=== PATIENT | male | born 1965 | race African-American/Black ===

== ENCOUNTER → 2017-01-10 | Outpatient (CLI) | payer OTHER ==
[~2017-01-10] MED LIST: CYCL1TAB29 PO; GLIP5TAB8 PO; HYDR-3533 PO; LEVEMIR SQ; MEDR4PAK PO; METF1000 PO; MOBI15TA PO; NOVOLOGP2 SQ; NYSTCRE29 TOPICAL; PRAV80TA2 PO; needles SQ; test strips TD
[2017-01-10 08:32] LABS: AUTOMATED NEUTROPHIL # 2.4 TH/MM3 (1.8-7.7); BASOPHIL # 0.1 TH/MM3 (0-0.2); BASOPHIL % 0.9 % (0.0-2.0); EOSINOPHIL # 0.3 TH/MM3 (0-0.4); EOSINOPHIL % 4.5 % (0.0-4.0); HEMATOCRIT 40.8 % (39.0-51.0); HEMO FLAGS DIFF FINAL; LYMPH % 47.9 % (9.0-44.0); LYMPHOCYTE # 2.9 TH/MM3 (1.0-4.8); MEAN CELL VOLUME 91.6 FL (80.0-100.0); MEAN CORPUSCULAR HEMOGLOBIN 31.9 PG (27.0-34.0); MEAN CORPUSCULAR HGB CONC 34.8 % (32.0-36.0); MONO % 5.8 % (0.0-8.0); NEUT % 40.9 % (16.0-70.0); PLATELET COUNT 254 TH/MM3 (150-450); RED BLOOD COUNT 4.46 MIL/MM3 (4.50-5.90); RED CELL DISTRIBUTION WIDTH 12.2 % (11.6-17.2)
[2017-01-10 09:01] LABS: ANION GAP 9 MEQ/L (5-15); BICARBONATE 24.7 MEQ/L (21.0-32.0); BLOOD UREA NITROGEN 13 MG/DL (7-18); CHLORIDE 103 MEQ/L (98-107); GLOMERULAR FILTRATION RATE 68 ML/MIN (>89); GLUCOSE,FASTING 279 MG/DL (74-99); POTASSIUM 3.9 MEQ/L (3.5-5.1); SODIUM (NA) 137 MEQ/L (136-145)
[2017-01-10 10:41] LABS: HEMOGLOBIN A1a 0.8 %; HEMOGLOBIN A1b 2.1 %; HEMOGLOBIN Ao 81.1 %; HEMOGLOBIN LA1C 3.1 %; HEMOGLOBIN P3 4.5 %
== END ==
LOC: CLAB 08:13
PROVIDERS: ATTEND Family Medicine Sports Medicine
DX: E78.5 Hyperlipidemia, unspecified (principal); E11.9 Type 2 diabetes mellitus without complications
CPT/HCPCS: 36415; 80048; 83036; 85025

== ENCOUNTER → 2017-08-23 | Outpatient (CLI) | payer OTHER ==
[~2017-08-23] MED LIST changes: -MEDR4PAK PO; -MOBI15TA PO
[2017-08-23 09:56] LABS: HEMATOCRIT 41.8 % (39.0-51.0); MEAN CELL VOLUME 92.5 FL (80.0-100.0); MEAN CORPUSCULAR HEMOGLOBIN 31.5 PG (27.0-34.0); PLATELET COUNT 258 TH/MM3 (150-450); RED BLOOD COUNT 4.52 MIL/MM3 (4.50-5.90); RED CELL DISTRIBUTION WIDTH 11.8 % (11.6-17.2); REVIEW FLAG FINAL; WHITE BLOOD COUNT 5.1 TH/MM3 (4.0-11.0)
[2017-08-23 10:33] LABS: ANION GAP 8 MEQ/L (5-15); BICARBONATE 22.4 MEQ/L (21.0-32.0); BLOOD UREA NITROGEN 12 MG/DL (7-18); CHLORIDE 104 MEQ/L (98-107); GLOMERULAR FILTRATION RATE 83 ML/MIN (>89); GLUCOSE,FASTING 258 MG/DL (74-99); POTASSIUM 3.9 MEQ/L (3.5-5.1); SODIUM (NA) 134 MEQ/L (136-145)
[2017-08-23 10:37] LABS: HDL CHOLESTEROL 46.8 MG/DL (40.0-60.0); LDL CHOLESTEROL 129 MG/DL (0-99)
[2017-08-23 10:41] LABS: MICRO ALBUMIN RANDOM URINE RAW 24.7 MG/L (0.0-30.0)
[2017-08-23 15:36] LABS: HEMOGLOBIN A1b 2.1 %; HEMOGLOBIN Ao 81.1 %; HEMOGLOBIN LA1C 3.1 %; HEMOGLOBIN P3 4.6 %
== END ==
LOC: CLAB 09:16
PROVIDERS: ATTEND Family Medicine
DX: E11.42 Type 2 diabetes mellitus with diabetic polyneuropathy (principal); Z68.30 Body mass index [BMI] 30.0-30.9, adult
CPT/HCPCS: 36415; 80048; 80061; 82043; 83036; 85027

== ENCOUNTER 2017-10-21 12:29 | Emergency (ER) | payer OTHER ==
[~2017-10-21 12:29] MED LIST changes: +CYCL10TA PO; -CYCL1TAB29 PO
[2017-10-21 12:30] VITALS: BP 185/100; PULSE 98; RESP 16; TEMP 98.9; O2SAT 96
[2017-10-21] MEDS ORDERED: LIDOCAINE HCL 1% 50 ML VIAL INFIL ONE (14:00)
[2017-10-21] MEDS ORDERED: ACETAMINOPHEN/HYDROcodone 325 MG/5 MG TAB PO ONE (14:00)
--- NOTE | 2017-10-21 14:05 | PD ---
HPI Chief Complaint: Skin Problem Time Seen by Provider: 13:45 Travel History International Travel<30 days: No Contact w/Intl Traveler<30days: No Traveled to known affect area: No History of Present Illness HPI 51-year-old male presents to emergency department complaining of an abscess to the lower abdominal/suprapubic region. States this started last Saturday and was extremely painful. Denies radiation of pain. He is taken multiple over-the- counter medications for pain and hip has only worsened. Patient has tried to open and press on the wound however he was unsuccessful. He has been using warm and cool compresses with some expression of fluid. Patient states he did have fever yesterday of 101 that was decreased with Motrin and Tylenol. Patient has diabetes. He denies a history of abscesses. PFSH Past Medical History Asthma: No Blood Disorders: No Anxiety: Yes Depression: Yes Cancer: No Cardiovascular Problems: Yes High Cholesterol: Yes Chest Pain: Yes COPD: No Diabetes: Yes Diminished Hearing: No Endocrine: Yes Glaucoma: No Genitourinary: No Hepatitis: No Hiatal Hernia: No Hypertension: Yes Immune Disorder: No Kidney Stones: Yes Musculoskeletal: Yes Neurologic: No Psychiatric: No Reproductive: No Respiratory: No Myocardial Infarction: Yes Seizures: Yes Thyroid Disease: No PNEUMOCCOCAL Vaccine (Year): 3 : 4 Para: 3 Miscarriage: 1 Past Surgical History Hysterectomy: Yes (1983) Pacemaker: No Tonsillectomy: Yes Other Surgery: Yes Social History Alcohol Use: Yes Tobacco Use: No Substance Use: No Allergies-Medications (Allergen,Severity, Reaction): Coded Allergies: morphine (Unverified Allergy, Severe, CHEST PAIN, 08/22/17) Reported Meds & Prescriptions Reported Meds & Active Scripts Active Bactrim DS (Sulfamethoxazole-Trimethoprim) 800-160 Mg Tab 1 Tab PO BID Novolog Inj (Insulin Aspart) 1,000 Unit/10 Ml Vial 15 Units SQ TIDAC Levemir Inj (Insulin Detemir) 1,000 unit/ 10 ML Vial 25 Units SQ HS Do not mix with any other Insulin. [needles] 1 SQ ACHS AND 3AM needles, syringes, lancets for twice daily lantus administration. Dispense 30 days supply. [test strips] 2 U TD BID [employer] Thing[employer] Contour Test Strips Metformin (Metformin HCl) 1,000 Mg Tab 1,000 Mg PO BIDPC With meals Lortab (Hydrocodone-Acetaminophen) 5-325 Mg Tab 1 Tab PO Q6H PRN Glipizide 5 Mg Tab 5 Mg PO BIDAC Take 30 minutes before a meal Nystatin-Triamcinolone 100,000-0.1 Unit/Gm Cream 1 Applic TOPICAL BID Pravastatin 80 Mg Tab 80 Mg PO DAILY Reported Flexeril (Cyclobenzaprine HCl) 10 Mg Tab 10 Mg PO TID Review of Systems Except as stated in HPI: all other systems reviewed are Neg Physical Exam Narrative GENERAL: Well-developed well-nourished in mild distress SKIN: Focused skin assessment warm/dry. HEAD: Atraumatic. Normocephalic. NECK: Trachea midline. No JVD. No lymphadenopathy CARDIOVASCULAR: Regular rate and rhythm. No murmur appreciated. RESPIRATORY: No accessory muscle use. Clear to auscultation. Breath sounds equal bilaterally. GASTROINTESTINAL: Abdomen soft, non-tender, nondistended. Hepatic and splenic margins not palpable. Lower abdominal/suprapubic region- 1-1/2 cm round lesion with exudate, surrounding area of induration for several years by 3 cm without obvious lymphangitic Spread or erythema. MUSCULOSKELETAL: No obvious deformities. No clubbing. No cyanosis. No edema. NEUROLOGICAL: Awake and alert. No obvious cranial nerve deficits. Motor grossly within normal limits. Normal speech. PSYCHIATRIC: Appropriate mood and affect; insight and judgment normal. Data Data Last Documented VS Vital Signs Date Time Temp Pulse Resp B/P (MAP) Pulse Ox O2 Delivery O2 Flow Rate FiO2 10/21/17 12:30 98.9 98 16 185/100 (128) 96 Orders Orders Acetamin-Hydrocod 325-5 Mg (Tyler 5-325 (10/21/17 14:00) Lidocaine 1% Inj (50 Ml) (Xylocaine 1% I (10/21/17 14:00) Ed Discharge Order (10/21/17 14:32) MDM Medical Decision Making Medical Screen Exam Complete: Yes Emergency Medical Condition: Yes Differential Diagnosis Abscess, cellulitis, erysipelas Narrative Course 51-year-old male presents to emergency department complaining of an abscess to the lower abdominal/suprapubic region. States this started last Saturday and was extremely painful. Denies radiation of pain. He is taken multiple over-the- counter medications for pain and hip has only worsened. Patient has tried to open and press on the wound however he was unsuccessful. He has been using warm and cool compresses with some expression of fluid. Patient states he did have fever yesterday of 101 that was decreased with Motrin and Tylenol. Patient has diabetes. He denies a history of abscesses. Vital signs stable Physical exam consistent with abscess. Incision and drainage performed today. Advised on wound care. Advised patient follow-up with primary care within 2 days or return to the emergency department for wound check. Bactrim DS antibiotic for abscess. Procedures Procedure Narrative INCISION AND DRAINAGE OF ABSCESS: The area was prepped and was sterilely draped. A subcutaneous wheal of 1% Xylocaine without epi with a total number 2 mL was used to anesthetize the area properly. A number 11 scalpel was used to make a 5 mm incision across the area of the abscess. The abscess was drained, complex loculations were broken down, and irrigated with normal saline. Quarter inch iodoform packing was placed in the wound. Sterile dressing applied. Patient advised to have packing removed in two days. Diagnosis Primary Impression: Abscess Referrals: Primary Care Physician Additional Instructions: Follow-up with primary care physician within 2 days for wound check. If you cannot follow-up with primary care return to the emergency department. Keep wound clean and dry for at least 24 hours then you may replace the dressing with dry clean dressing. If the gauze comes out of the wound just cover the wound with clean dressing and follow up as described. Take all medications as prescribed. After 24-48hours, you may continue to use warm compresses on the wound. Scripts Sulfamethoxazole-Trimethoprim (Bactrim DS) 800-160 Mg Tab 1 TAB PO BID for Infection, #20 TAB 0 Refills Prov: Latonia Naqvi 10/21/17 Disposition: 01 DISCHARGE HOME Condition: Stable Ninfa Beyer Oct 21, 2017 14:05
[2017-10-21] MEDS ORDERED: BACT800T5 PO (14:30)
[2017-11-01] MEDS ORDERED: NOVOLOGP2 SQ (15:16)
[2017-11-01] MEDS ORDERED: needles SQ (15:16)
[2017-11-01] MEDS ORDERED: GABA300C5 PO (15:21)
== END 2017-10-21 14:51 | disposition home or self-care (01) ==
LOC: NEPD 12:29
DX: L02.211 Cutaneous abscess of abdominal wall (principal); E11.9 Type 2 diabetes mellitus without complications; E78.00 Pure hypercholesterolemia, unspecified; Z79.4 Long term (current) use of insulin
CPT/HCPCS: 10060; 10061

== ENCOUNTER → 2017-11-07 | Outpatient (CLI) | payer OTHER ==
[~2017-11-07] MED LIST changes: -CYCL10TA PO; +GABA300C5 PO
[2017-11-07 09:11] LABS: HEMATOCRIT 39.3 % (39.0-51.0); HEMOGLOBIN 13.3 GM/DL (13.0-17.0); MEAN CELL VOLUME 93.5 FL (80.0-100.0); MEAN CORPUSCULAR HEMOGLOBIN 31.8 PG (27.0-34.0); MEAN PLATELET VOLUME 6.6 FL (7.0-11.0); PLATELET COUNT 313 TH/MM3 (150-450); RED CELL DISTRIBUTION WIDTH 12.3 % (11.6-17.2); WHITE BLOOD COUNT 7.1 TH/MM3 (4.0-11.0)
[2017-11-07 09:37] LABS: BICARBONATE 22.8 MEQ/L (21.0-32.0); BLOOD UREA NITROGEN 14 MG/DL (7-18); CALCIUM 9.4 MG/DL (8.5-10.1); CHLORIDE 105 MEQ/L (98-107); CREATININE 1.23 MG/DL (0.60-1.30); GLOMERULAR FILTRATION RATE 75 ML/MIN (>89); GLUCOSE,FASTING 209 MG/DL (74-99); SODIUM (NA) 136 MEQ/L (136-145)
[2017-11-07 16:20] LABS: HEMOGLOBIN A1C 7.2 % (4.3-6.0)
== END ==
LOC: CLAB 08:44
PROVIDERS: ATTEND Family Medicine
DX: E11.9 Type 2 diabetes mellitus without complications (principal); N28.9 Disorder of kidney and ureter, unspecified; E78.5 Hyperlipidemia, unspecified
CPT/HCPCS: 36415; 80048; 83036; 85027

== ENCOUNTER → 2018-03-04 | Outpatient (CLI) | payer OTHER ==
[~2018-03-04] MED LIST changes: +LEVA500T33 PO; +PERC5TAB12 PO
[2018-03-04 14:32] LABS: BILIRUBIN, URINE NEG (NEG); BLOOD, URINE NEG (NEG); GLUCOSE,URINE 300 mg/dL (NEG); HYALINE CAST, URINE 8 /lpf (RARE); KETONE, URINE NEG (NEG); MUCUS URINE FEW /lpf (OCC); NITRITE,URINE NEG (NEG); PH, URINE 5.5 (5.0-8.5); SQUAMOUS EPITHELIAL CELL URINE 1 /hpf (0-5); URINE COLOR YELLOW (YELLW/STRAW); URINE LEUKOCYTE ESTERASE TRACE (NEG)
== END ==
LOC: CLAB 13:27
PROVIDERS: ATTEND Hospitalist
DX: N40.1 Benign prostatic hyperplasia with lower urinary tract symptoms (principal)
CPT/HCPCS: 36415; 81001; 84153

== ENCOUNTER → 2018-03-12 | Outpatient (CLI) | payer OTHER | LOC: CLAB 08:39 | PROVIDERS: ATTEND Family Medicine | DX: N45.1 Epididymitis (principal) | CPT/HCPCS: 36415; 86592; 86703; 87086; 87491; 87591 ==

== ENCOUNTER 2018-03-13 14:44 | Inpatient (IN) | payer OTHER ==
[~2018-03-13] VITALS: Ht 188 cm; Wt 112.2 kg
[~2018-03-13 14:44] MED LIST changes: -LEVA500T33 PO; -PERC5TAB12 PO
[2018-03-13 14:50] VITALS: BP 158/91; PULSE 91; RESP 16; TEMP 98.3; O2SAT 97
--- NOTE | 2018-03-13 15:12 | PD ---
HPI Chief Complaint: Flank/Kidney Pain Time Seen by Provider: 15:12 Travel History International Travel<30 days: No Contact w/Intl Traveler<30days: No Traveled to known affect area: No History of Present Illness HPI 52-year-old -[place] male presents emergency department with worsening right flank pain. He has nausea but no vomiting. He states he was seen at [place] 2 days ago and had a CT scan showing 1 mm stone in the right ureter with possible obstruction. Patient states his symptoms have worsened with increasing pain, nausea, and he called his doctor who recommended he be seen here for evaluation. Patient states flank pain is currently 8 out of 10. He has no fever, chills, or dysuria. He denies hematuria he states he is allergic to morphine PFS Past Medical History Asthma: No Blood Disorders: No Anxiety: Yes Depression: Yes Cancer: No Cardiovascular Problems: Yes High Cholesterol: Yes Chest Pain: Yes COPD: No Diabetes: Yes Diminished Hearing: No Endocrine: Yes Glaucoma: No Genitourinary: No Hepatitis: No Hiatal Hernia: No Hypertension: Yes Immune Disorder: No Kidney Stones: Yes Musculoskeletal: Yes (CHRONIC LOW BACK PAIN , TORN ACL ) Neurologic: No Psychiatric: No Reproductive: No Respiratory: No Myocardial Infarction: Yes Seizures: Yes Thyroid Disease: No PNEUMOCCOCAL Vaccine (Year): 3 : 4 Para: 3 Miscarriage: 1 Past Surgical History Hysterectomy: Yes (1983) Pacemaker: No Tonsillectomy: Yes Other Surgery: Yes Social History Alcohol Use: Yes Tobacco Use: No Substance Use: Yes (marijuana ) Allergies-Medications (Allergen,Severity, Reaction): Coded Allergies: morphine (Unverified Allergy, Severe, CHEST PAIN, 11/01/17) Reported Meds & Prescriptions Reported Meds & Active Scripts Active Gabapentin 300 Mg Cap 300 Mg PO TID Novolog Inj (Insulin Aspart) 1,000 Unit/10 Ml Vial 15 Units SQ TIDAC [needles] 1 SQ ACHS AND 3AM needles, syringes, lancets for twice daily lantus administration. Dispense 30 days supply. Levemir Inj (Insulin Detemir) 1,000 unit/ 10 ML Vial 25 Units SQ HS Do not mix with any other Insulin. [test strips] 2 U TD BID [employer] Contour Test Strips Metformin (Metformin HCl) 1,000 Mg Tab 1,000 Mg PO BIDPC With meals Lortab (Hydrocodone-Acetaminophen) 5-325 Mg Tab 1 Tab PO Q6H PRN Glipizide 5 Mg Tab 5 Mg PO BIDAC Take 30 minutes before a meal Nystatin-Triamcinolone 100,000-0.1 Unit/Gm Cream 1 Applic TOPICAL BID Pravastatin 80 Mg Tab 80 Mg PO DAILY Review of Systems Except as stated in HPI: all other systems reviewed are Neg General / Constitutional: No: Fever Eyes: No: Visual changes HENT: No: Headaches Cardiovascular: No: Chest Pain or Discomfort Respiratory: No: Shortness of Breath Gastrointestinal: No: Abdominal Pain Genitourinary: Positive: Flank Pain, No: Dysuria Musculoskeletal: No: Pain Skin: No Rash Neurologic: No: Weakness Psychiatric: No: Depression Endocrine: No: Polydipsia Hematologic/Lymphatic: No: Easy Bruising Physical Exam Narrative GENERAL: Patient appears in mild to moderate distress per SKIN: Warm and dry. Normal color. Normal turgor. No diaphoresis per HEAD: Atraumatic. Normocephalic. EYES: Pupils equal and round. No scleral icterus. No injection or drainage. ENT: No nasal bleeding or discharge. Mucous membranes pink and moist. Pharynx is clear. Airways patent NECK: Trachea midline. Supple nontender CARDIOVASCULAR: Regular rate and rhythm. RESPIRATORY: No accessory muscle use. Clear to auscultation. Breath sounds equal bilaterally. GASTROINTESTINAL: Abdomen soft, non-tender, nondistended. Hepatic and splenic margins not palpable. Patient has mild to moderate right sided flank pain with percussion. MUSCULOSKELETAL: Extremities without clubbing, cyanosis, or edema. No obvious deformities. NEUROLOGICAL: Awake and alert. No obvious cranial nerve deficits. Motor grossly within normal limits. Five out of 5 muscle strength in the arms and legs. Normal speech. PSYCHIATRIC: Appropriate mood and affect; insight and judgment normal. Data Data Last Documented VS Vital Signs Date Time Temp Pulse Resp B/P (MAP) Pulse Ox O2 Delivery O2 Flow Rate FiO2 03/13/18 14:50 98.3 91 16 158/91 (113) 97 Orders Orders Complete Blood Count With Diff (03/13/18 15:22) Comprehensive Metabolic Panel (03/13/18 15:22) Urinalysis - C+S If Indicated (03/13/18 15:22) Ct Abd/Pel W/O Iv Contrast (03/13/18 15:22) Iv Access Insert/Monitor (03/13/18 15:22) Ketorolac Inj (Toradol Inj) (03/13/18 15:30) Ondansetron Inj (Zofran Inj) (03/13/18 15:30) Sodium Chloride 0.9% Flush (Ns Flush) (03/13/18 15:30) Sodium Chlor 0.9% 1000 Ml Inj (Ns 1000 M (03/13/18 16:00) Tamsulosin (Flomax) (03/13/18 16:00) Consult Urology (03/13/18 ) Labs Laboratory Tests Test 03/13/18 15:45 White Blood Count 6.6 TH/MM3 Red Blood Count 4.06 MIL/MM3 Hemoglobin 13.0 GM/DL Hematocrit 37.5 % Mean Corpuscular Volume 92.3 FL Mean Corpuscular Hemoglobin 31.9 PG Mean Corpuscular Hemoglobin Concent 34.6 % Red Cell Distribution Width 11.9 % Platelet Count 270 TH/MM3 Mean Platelet Volume 7.2 FL Neutrophils (%) (Auto) 45.2 % Lymphocytes (%) (Auto) 44.9 % Monocytes (%) (Auto) 5.9 % Eosinophils (%) (Auto) 3.6 % Basophils (%) (Auto) 0.4 % Neutrophils # (Auto) 3.0 TH/MM3 Lymphocytes # (Auto) 3.0 TH/MM3 Monocytes # (Auto) 0.4 TH/MM3 Eosinophils # (Auto) 0.2 TH/MM3 Basophils # (Auto) 0.0 TH/MM3 CBC Comment DIFF FINAL Differential Comment Urine Color YELLOW Urine Turbidity CLEAR Urine pH 5.5 Urine Specific [place] 1.023 Urine Protein TRACE mg/dL Urine Glucose (UA) 1000 mg/dL Urine Ketones NEG mg/dL Urine Occult Blood NEG Urine Nitrite NEG Urine Bilirubin NEG Urine Urobilinogen LESS THAN 2.0 MG/DL Urine Leukocyte Esterase TRACE Urine RBC LESS THAN 1 /hpf Urine WBC 3 /hpf Urine Squamous Epithelial Cells <1 /hpf Microscopic Urinalysis Comment CULT NOT INDICATED Blood Urea Nitrogen 13 MG/DL Creatinine 1.58 MG/DL Random Glucose 219 MG/DL Total Protein 7.1 GM/DL Albumin 3.5 GM/DL Calcium Level 8.9 MG/DL Alkaline Phosphatase 83 U/L Aspartate Amino Transf (AST/SGOT) 18 U/L Alanine Aminotransferase (ALT/SGPT) 21 U/L Total Bilirubin 0.6 MG/DL Sodium Level 136 MEQ/L Potassium Level 3.9 MEQ/L Chloride Level 105 MEQ/L Carbon Dioxide Level 22.9 MEQ/L Anion Gap 8 MEQ/L Estimat Glomerular Filtration Rate 56 ML/MIN MDM Medical Decision Making Medical Screen Exam Complete: Yes Emergency Medical Condition: Yes Differential Diagnosis Right flank pain. Renal colic. Kidney stone. Narrative Course Patient appears medically stable at time of exam. CT of the abdomen without contrast is ordered to evaluate renal stone. IV access is obtained the patient is given 30 mg Toradol IV as well as 4 mg Zofran IV. Patient is given 1000 mL's normal saline bolus. Patient is given Flomax 0.4 mg p.o. CBC is unremarkable. Urinalysis is unremarkable except for glucose of 1000 and a trace of leukocyte esterase. No occult blood is noted. Chemistry significant for creatinine 1.58 which is elevated for the patient. GFR 56. Random glucose is elevated as well at 219 CT scan showed: Right side: Severe hydronephrosis and hydroureter caused by multiple calcified stones in the distal one third of the ureter, 3 in number, the largest of which measures 8 mm. Are also dilated 10 mm calcification in the lower pole collecting system which could represent a multiple small stones or a solitary irregular stone. Calls placed to Dr. Luna, the urologist marketing liaison. He recommends the patient be admitted to the hospitalist service with consult to him. He is requesting the patient be n.p.o. after midnight for possible stent placement in the morning. Calls placed to the hospitalist for admission. Diagnosis Primary Impression: Hydronephrosis Qualified Codes: N13.2 - Hydronephrosis with renal and ureteral calculous obstruction Additional Impression: Renal calculus, right Admitting Information Admitting Physician Requests: Admit Condition: Stable Rob Plunkett March 13, 2018 15:12
[2018-03-13] MEDS ORDERED: ONDANSETRON HCL 4 MG/2 ML VIAL IVP ONE (15:30)
[2018-03-13] MEDS ORDERED: SODIUM CHLORIDE 0.9% FLUSH 10 ML FLUSH IVF PRN (15:30)
[2018-03-13] MEDS ORDERED: KETOROLAC TROMETHAMINE 30 MG/ML (IVP) VIAL IVP ONE (15:30)
[2018-03-13 15:58] LABS: BILIRUBIN, URINE NEG (NEG); BLOOD, URINE NEG (NEG); GLUCOSE,URINE 1000 mg/dL (NEG); KETONE, URINE NEG (NEG); NITRITE,URINE NEG (NEG); PH, URINE 5.5 (5.0-8.5); SQUAMOUS EPITHELIAL CELL URINE <1 /hpf (0-5); URINE COLOR YELLOW (YELLW/STRAW); URINE LEUKOCYTE ESTERASE TRACE (NEG)
[2018-03-13] MEDS ORDERED: TAMSULOSIN HCL 0.4 MG CAP PO ONE (16:00)
[2018-03-13] MEDS ORDERED: SODIUM CHLOR 0.9% 1000 ML INJ 1,000 ML IV ONE (16:00)
--- NOTE | 2018-03-13 16:00 | PD ---
Physical Exam Narrative I, Dr. Olivares, have reviewed the advance practice practitioner's documentation and am in agreement, met with the patient face to face, made the diagnosis, and the medical decision making was done by me. *My assessment and Findings: Nephrolithiasis vs. pyelonephritis 52yo M with PMH of nephrolithiasis presents to the ED with intermittent right flank pain radiating to right groin for 2 weeks. Said he saw his primary care physician and was told to come to the Emergency department. Said he had CT 2 days ago that showed kidney stone and obstruction. Pt has CVA tenderness on right. He said he is urinating fine. Will do labs and check UA. Pt given toradol and zofran. Labs reviewed, no leukocytosis. Creatinine mildly elevated at 1.58. UA negative. CT a/p showed obstructive uropathy on right side with severe hydronephrosis and hydroureter cause by 3 distal right ureteral stones. Dr. Pal was called. Pt to be admitted for obstructive uropathy. Data Data Last Documented VS Vital Signs Date Time Temp Pulse Resp B/P (MAP) Pulse Ox O2 Delivery O2 Flow Rate FiO2 03/13/18 14:50 98.3 91 16 158/91 (113) 97 Orders Orders Complete Blood Count With Diff (03/13/18 15:22) Comprehensive Metabolic Panel (03/13/18 15:22) Urinalysis - C+S If Indicated (03/13/18 15:22) Ct Abd/Pel W/O Iv Contrast (03/13/18 15:22) Iv Access Insert/Monitor (03/13/18 15:22) Ketorolac Inj (Toradol Inj) (03/13/18 15:30) Ondansetron Inj (Zofran Inj) (03/13/18 15:30) Sodium Chloride 0.9% Flush (Ns Flush) (03/13/18 15:30) Sodium Chlor 0.9% 1000 Ml Inj (Ns 1000 M (03/13/18 16:00) Tamsulosin (Flomax) (03/13/18 16:00) Labs Laboratory Tests Test 03/13/18 15:45 White Blood Count 6.6 TH/MM3 Red Blood Count 4.06 MIL/MM3 Hemoglobin 13.0 GM/DL Hematocrit 37.5 % Mean Corpuscular Volume 92.3 FL Mean Corpuscular Hemoglobin 31.9 PG Mean Corpuscular Hemoglobin Concent 34.6 % Red Cell Distribution Width 11.9 % Platelet Count 270 TH/MM3 Mean Platelet Volume 7.2 FL Neutrophils (%) (Auto) 45.2 % Lymphocytes (%) (Auto) 44.9 % Monocytes (%) (Auto) 5.9 % Eosinophils (%) (Auto) 3.6 % Basophils (%) (Auto) 0.4 % Neutrophils # (Auto) 3.0 TH/MM3 Lymphocytes # (Auto) 3.0 TH/MM3 Monocytes # (Auto) 0.4 TH/MM3 Eosinophils # (Auto) 0.2 TH/MM3 Basophils # (Auto) 0.0 TH/MM3 CBC Comment DIFF FINAL Differential Comment Urine Color YELLOW Urine Turbidity CLEAR Urine pH 5.5 Urine Specific [place] 1.023 Urine Protein TRACE mg/dL Urine Glucose (UA) 1000 mg/dL Urine Ketones NEG mg/dL Urine Occult Blood NEG Urine Nitrite NEG Urine Bilirubin NEG Urine Urobilinogen LESS THAN 2.0 MG/DL Urine Leukocyte Esterase TRACE Urine RBC LESS THAN 1 /hpf Urine WBC 3 /hpf Urine Squamous Epithelial Cells <1 /hpf Microscopic Urinalysis Comment CULT NOT INDICATED Blood Urea Nitrogen 13 MG/DL Creatinine 1.58 MG/DL Random Glucose 219 MG/DL Total Protein 7.1 GM/DL Albumin 3.5 GM/DL Calcium Level 8.9 MG/DL Alkaline Phosphatase 83 U/L Aspartate Amino Transf (AST/SGOT) 18 U/L Alanine Aminotransferase (ALT/SGPT) 21 U/L Total Bilirubin 0.6 MG/DL Sodium Level 136 MEQ/L Potassium Level 3.9 MEQ/L Chloride Level 105 MEQ/L Carbon Dioxide Level 22.9 MEQ/L Anion Gap 8 MEQ/L Estimat Glomerular Filtration Rate 56 ML/MIN [facility] Supervised Visit with JUVENAL: Yes Diagnosis Primary Impression: Obstructive uropathy Admitting Information Admitting Physician Requests: Admit Condition: Stable Jessica Olivares DO March 13, 2018 16:00
[2018-03-13 16:10] LABS: BASOPHIL % 0.4 % (0.0-2.0); EOSINOPHIL # 0.2 TH/MM3 (0-0.4); EOSINOPHIL % 3.6 % (0.0-4.0); HEMATOCRIT 37.5 % (39.0-51.0); LYMPH % 44.9 % (9.0-44.0); MEAN CELL VOLUME 92.3 FL (80.0-100.0); MEAN CORPUSCULAR HEMOGLOBIN 31.9 PG (27.0-34.0); MEAN CORPUSCULAR HGB CONC 34.6 % (32.0-36.0); MEAN PLATELET VOLUME 7.2 FL (7.0-11.0); MONO % 5.9 % (0.0-8.0); MONOCYTE # 0.4 TH/MM3 (0-0.9); NEUT % 45.2 % (16.0-70.0); PLATELET COUNT 270 TH/MM3 (150-450); RED BLOOD COUNT 4.06 MIL/MM3 (4.50-5.90); RED CELL DISTRIBUTION WIDTH 11.9 % (11.6-17.2); WHITE BLOOD COUNT 6.6 TH/MM3 (4.0-11.0)
[2018-03-13 16:21] LABS: ALBUMIN 3.5 GM/DL (3.4-5.0); ALKALINE PHOSPHATASE 83 U/L (45-117); ALT (GPT) 21 U/L (12-78); AST (GOT) 18 U/L (15-37); BLOOD UREA NITROGEN 13 MG/DL (7-18); CALCIUM 8.9 MG/DL (8.5-10.1); CREATININE 1.58 MG/DL (0.60-1.30); GLOMERULAR FILTRATION RATE 56 ML/MIN (>89); GLUCOSE,RANDOM 219 MG/DL (74-106); TOTAL BILIRUBIN ADULT 0.6 MG/DL (0.2-1.0); TOTAL PROTEIN 7.1 GM/DL (6.4-8.2)
[2018-03-13 16:22] LABS: BICARBONATE 22.9 MEQ/L (21.0-32.0); CHLORIDE 105 MEQ/L (98-107); SODIUM (NA) 136 MEQ/L (136-145)
--- NOTE | 2018-03-13 17:15 | RADRPT ---
EXAM DATE/TIME: 03/13/2018 16:48 [facility] COMPARISON: No previous studies available for comparison. INDICATIONS : Right flank pain. ORAL CONTRAST: No oral contrast ingested. RADIATION DOSE: 21.13 CTDIvol (mGy) MEDICAL HISTORY : Cardiovascular disease. Hypertension. Renal calculi. SURGICAL HISTORY : None. ENCOUNTER: Initial ACUITY: 1 day PAIN SCALE: 5/10 LOCATION: Right flank TECHNIQUE: Renal colic protocol. Volumetric scanning of the abdomen and pelvis was performed. Using automated exposure control and adjustment of the mA and/or kV according to patient size, radiation dose was kep t as low as reasonably achievable to obtain optimal diagnostic quality images. DICOM format image da ta is available electronically for review and comparison. FINDINGS: Right side: Severe hydronephrosis and hydroureter caused by multiple calcified stones in the distal one third of the ureter, 3 in number, the largest of which measures 8 mm. Are also dilated 10 mm calcification in the lower pole collecting system which could represent a multiple small stones or a solitary irregul ar stone. Left side: No evidence of hydronephrosis or hydroureter. Several tiny stones in the mid to upper pole measuring 2 mm or less. Bladder: Smooth margins, nondistended. No calcifications within the lumen. Other: No dilated loops of small or large bowel. No calcified gallstones stop mild induration of the subcut aneous soft tissues superficial to Cam's fascia in the left lower quadrant of the abdomen. CONCLUSION: 1. Obstructive uropathy on the right side with severe hydronephrosis and hydroureter caused by 3 dist al right ureteral stones. 2. Mild induration of the subcutaneous soft tissues of the abdominal wall of the left lower quadrant. Santana Khna MD on March 13, 2018 at 17:08 Board Certified Radiologist. This report was verified electronically.
--- NOTE | 2018-03-13 17:35 | HHI.HP ---
[facility] Service Family Medicine Primary Care Physician Philippe Gross MD Admission Diagnosis Right renal stone with hydronephrosis Diagnoses: Chief Complaint: flank pain International Travel<30 Days: No Contact w/Intl Traveler<30days: No Known Affected Area: No History of Present Illness 52-year-old male with history of diabetes and nephrolithiasis presents with right flank pain. He states initially started about 2 months ago. Has been off and on since. He initially thought was a UTI. He said the pain wakes him up in the middle night. Is 10/10 at its worse. States the pain is mainly on his right side, radiates from his groin to his back. Describes the pain as stabbing. Also has incomplete emptying when urinating. Does have a history of BPH. He is not urinating more or less. Has not noticed any blood in his urine. Pain improves with heating pad. He has had kidney stones in the past. Last one was in September 2017. Has never had surgery for the kidney stones, he always passed them. Denies any nausea/vomiting, chest pain, shortness of breath, fever/chills. Review of Systems Constitutional: DENIES: Fever, Chills, Dizziness Eyes: DENIES: Vision loss Ears, nose, mouth, throat: DENIES: Hearing loss, Throat pain Respiratory: DENIES: Cough, Shortness of breath Cardiovascular: DENIES: Chest pain, Lower Extremity Edema Gastrointestinal: COMPLAINS OF: Abdominal pain, Diarrhea, DENIES: Black stools , Bloody stools, Constipation, Nausea, Vomiting Genitourinary: COMPLAINS OF: Urgency, Testicular Pain, DENIES: Hematuria, Dysuria, Penile Discharge Musculoskeletal: DENIES: Back pain, Neck pain Integumentary: DENIES: Abnormal pigmentation, Rash Hematologic/lymphatic: DENIES: Bruising, Lymphadenopathy Neurologic: DENIES: Abnormal gait, Headache, Localized weakness, Paresthesias Psychiatric: DENIES: Anxiety, Confusion, Mood changes Past Family Social History Past Medical History DM II HTN HLD BPH h/o nephrolithiasis Past Surgical History Bilateral knee surgery Back surgery Reported Medications Reported Meds & Active Scripts Active Gabapentin 300 Mg Cap 300 Mg PO TID Novolog Inj (Insulin Aspart) 1,000 Unit/10 Ml Vial 15 Units SQ TIDAC [needles] 1 SQ ACHS AND 3AM needles, syringes, lancets for twice daily lantus administration. Dispense 30 days supply. Levemir Inj (Insulin Detemir) 1,000 unit/ 10 ML Vial 25 Units SQ HS Do not mix with any other Insulin. [test strips] 2 U TD BID [employer] Contour Test Strips Metformin (Metformin HCl) 1,000 Mg Tab 1,000 Mg PO BIDPC With meals Lortab (Hydrocodone-Acetaminophen) 5-325 Mg Tab 1 Tab PO Q6H PRN Glipizide 5 Mg Tab 5 Mg PO BIDAC Take 30 minutes before a meal Nystatin-Triamcinolone 100,000-0.1 Unit/Gm Cream 1 Applic TOPICAL BID Pravastatin 80 Mg Tab 80 Mg PO DAILY Allergies: Coded Allergies: morphine (Unverified Allergy, Severe, CHEST PAIN, 11/01/17) Active Ordered Medications Active Medications Ketorolac Tromethamine (Toradol Inj) 30 mg ONCE ONCE IVP Last administered on at 16:45; Admin Dose 30 MG; Start 03/13/18 at 15:30; Stop 03/13/18 at 15:31; Status DC Ondansetron HCl (Zofran Inj) 4 mg ONCE ONCE IVP; Start 03/13/18 at 15:30; Stop 03/13/18 at 15:31; Status DC Sodium Chloride 1,000 ml @ 999 mls/hr BOLUS ONCE IV Last administered on at 16:45; Admin Dose 999 MLS/HR; Start 03/13/18 at 16:00; Stop 03/13/18 at 17:00 ; Status DC Sodium Chloride (NS Flush) 2 ml UNSCH PRN IVF; Start 03/13/18 at 15:30 Tamsulosin HCl (Flomax) 0.4 mg ONCE ONCE PO; Start 03/13/18 at 16:00; Stop at 16:01; Status DC Family History Mother passed in her 60s from pancreatic cancer. Father passed from CHF Social History Previously smoked 1 PPD x 20 years Drinks beer 1x/month Smokes marijuana daily Works in construction Physical Exam Vital Signs Vital Signs Date Time Temp Pulse Resp B/P (MAP) Pulse Ox O2 Delivery O2 Flow Rate FiO2 03/13/18 14:50 98.3 91 16 158/91 (113) 97 Physical Exam GENERAL: This is a well-nourished, well-developed patient, in no apparent distress. SKIN: No rashes, ecchymoses or lesions. Cool and dry. HEAD: Atraumatic. Normocephalic. No temporal or scalp tenderness. EYES: Pupils equal round and reactive. Extraocular motions intact. No scleral icterus. No injection or drainage. ENT: Throat without erythema, tonsillar hypertrophy or exudate. Uvula midline. Airway patent. NECK: Trachea midline. No JVD or lymphadenopathy. Supple, nontender. CARDIOVASCULAR: Regular rate and rhythm without murmurs, gallops, or rubs. RESPIRATORY: Clear to auscultation. Breath sounds equal bilaterally. No wheezes , rales, or rhonchi. BACK: Mild right CVA tenderness. No left CVA tenderness GASTROINTESTINAL: Abdomen soft, mild tenderness palpation in the right lower groin. MUSCULOSKELETAL: Extremities without clubbing, cyanosis, or edema. No joint tenderness, effusion, or edema noted. No calf tenderness. NEUROLOGICAL: Awake and alert. Cranial nerves II through XII intact. Motor and sensory grossly within normal limits. Normal speech. Laboratory Laboratory Tests Test 03/13/18 15:45 White Blood Count 6.6 Red Blood Count 4.06 Hemoglobin 13.0 Hematocrit 37.5 Mean Corpuscular Volume 92.3 Mean Corpuscular Hemoglobin 31.9 Mean Corpuscular Hemoglobin Concent 34.6 Red Cell Distribution Width 11.9 Platelet Count 270 Mean Platelet Volume 7.2 Neutrophils (%) (Auto) 45.2 Lymphocytes (%) (Auto) 44.9 Monocytes (%) (Auto) 5.9 Eosinophils (%) (Auto) 3.6 Basophils (%) (Auto) 0.4 Neutrophils # (Auto) 3.0 Lymphocytes # (Auto) 3.0 Monocytes # (Auto) 0.4 Eosinophils # (Auto) 0.2 Basophils # (Auto) 0.0 CBC Comment DIFF FINAL Differential Comment Urine Color YELLOW Urine Turbidity CLEAR Urine pH 5.5 Urine Specific [place] 1.023 Urine Protein TRACE Urine Glucose (UA) 1000 Urine Ketones NEG Urine Occult Blood NEG Urine Nitrite NEG Urine Bilirubin NEG Urine Urobilinogen LESS THAN 2.0 Urine Leukocyte Esterase TRACE Urine RBC LESS THAN 1 Urine WBC 3 Urine Squamous Epithelial Cells <1 Microscopic Urinalysis Comment CULT NOT INDICATED Blood Urea Nitrogen 13 Creatinine 1.58 Random Glucose 219 Total Protein 7.1 Albumin 3.5 Calcium Level 8.9 Alkaline Phosphatase 83 Aspartate Amino Transf (AST/SGOT) 18 Alanine Aminotransferase (ALT/SGPT) 21 Total Bilirubin 0.6 Sodium Level 136 Potassium Level 3.9 Chloride Level 105 Carbon Dioxide Level 22.9 Anion Gap 8 Estimat Glomerular Filtration Rate 56 Result Diagram: 03/13/18 1545 03/13/18 1545 Imaging Last Impressions Abdomen/Pelvis CT 03/13/18 1522 Signed Impressions: Service Date/Time: March 16:48 - CONCLUSION: 1. Obstructive uropathy on the right side with severe hydronephrosis and hydroureter caused by 3 distal right ureteral stones. 2. Mild induration of the subcutaneous soft tissues of the abdominal wall of the left lower quadrant. MD Lakeisha Crespo VTE Risk Assessment Caprini VTE Risk Assessment: No/Low Risk (score <= 1) Caprini Risk Assessment Model Point Value = 1 Point Value = 2 Point Value = 3 Point Value = 5 Age 41-60 Minor surgery BMI > 25 kg/m2 Swollen legs Varicose veins or History of unexplained or recurrent spontaneous Oral contraceptives or hormone replacement Sepsis (< 1 month) Serious lung disease, including pneumonia (< 1 month) Abnormal pulmonary function Acute myocardial infarction Congestive heart failure (< 1 month) History of inflammatory bowel disease Medical patient at bed rest Age 61-74 Arthroscopic surgery Major open surgery (> 45 min) Laparoscopic surgery (> 45 min) Malignancy Confined to bed (> 72 hours) Immobilizing plaster cast Central venous access Age >= 75 History of VTE Family history of VTE Factor V Leiden Prothrombin [id number] Lupus anticoagulant Anticardiolipin antibodies Elevated serum homocysteine Heparin-induced thrombocytopenia Other congenital or acquired thrombophilia Stroke (< 1 month) Elective arthroplasty Hip, pelvis, or leg fracture Acute spinal cord injury (< 1 month) Prophylaxis Regimen Total Risk Factor Score Risk Level Prophylaxis Regimen 0-1 Low Early ambulation 2 Moderate Order ONE of the following: *Sequential Compression Device (SCD) *Heparin 5000 units SQ BID 3-4 Higher Order ONE of the following medications: *Heparin 5000 units SQ TID *Enoxaparin/Lovenox 40 mg SQ daily (WT < 150 kg, CrCl > 30 mL/min) *Enoxaparin/Lovenox 30 mg SQ daily (WT < 150 kg, CrCl > 10-29 mL/min) *Enoxaparin/Lovenox 30 mg SQ BID (WT < 150 kg, CrCl > 30 mL/min) AND/OR *Sequential Compression Device (SCD) 5 or more Highest Order ONE of the following medications: *Heparin 5000 units SQ TID (Preferred with Epidurals) *Enoxaparin/Lovenox 40 mg SQ daily (WT < 150 kg, CrCl > 30 mL/min) *Enoxaparin/Lovenox 30 mg SQ daily (WT < 150 kg, CrCl > 10-29 mL/min) *Enoxaparin/Lovenox 30 mg SQ BID (WT < 150 kg, CrCl > 30 mL/min) AND *Sequential Compression Device (SCD) Assessment and Plan Assessment and Plan 52-year-old male with history of diabetes and nephrolithiasis presents with right flank pain. Found to have obstructing renal stone. Will admit for management and urology evaluation and treatment. Code Status Full Discussed Condition With Dr. Poole Problem List: (1) Obstructive uropathy ICD Codes: N13.9 - Obstructive and reflux uropathy, unspecified Status: Acute Plan: Patient presents with right flank pain. History of nephrolithiasis. Abdomen/pelvis CT shows obstructive uropathy on the right side with severe hydronephrosis and hydroureter caused by 3 distal right ureteral stones. Vital signs stable. Afebrile. UA shows 1000 glucose, trace leukocyte esterase. -Urology consulted-ED spoke with urologist process environmental technician, possible stent placement in the AM -NPO after midnight -Given Flomax in ED -Toradol for pain -Zofran PRN nausea -Monitor I/O (2) FEDERICO (acute kidney injury) ICD Codes: N17.9 - Acute kidney failure, unspecified Status: Acute Plan: Creatinine of 1.58 on admission. Last creatinine was 11/07/17 was 1.23. Likely due to obstructing renal stone Given 1L bolus in ED -Monitor BMPs -Monitor fluid status -Avoid nephrotoxic agents (3) Type 2 diabetes mellitus ICD Codes: E11.9 - Type 2 diabetes mellitus without complications Status: Chronic Plan: On home insulin, metformin, glipizide. Hold home meds Low dose sliding scale (4) FEN Status: Acute Plan: Fluids: PO to avoid further hydronephrosis Electrolytes: monitor, replace PRN Nutrition: NPO after midnight DVT ppx: early ambulation Physician Certification 2 Midnight Certification Type: Admission for Inpatient Services Order for Inpatient Services The services are ordered in accordance with Medicare regulations or non- Medicare payer requirements, as applicable. In the case of services not specified as inpatient-only, they are appropriately provided as inpatient services in accordance with the 2-midnight benchmark. Estimated LOS (days): 2 days is the estimated time the patient will need to remain in the hospital, assuming treatment plan goals are met and no additional complications. Post-Hospital Plan: Home Joaquin Mcgarry MD R2 March 13, 2018 17:35
[2018-03-13] MEDS ORDERED: IBUPROFEN 400 MG TAB PO PRN (18:00)
[2018-03-13] MEDS ORDERED: MAGNESIUM HYDROXIDE SUSP 30 ML CUP PO PRN (18:00)
[2018-03-13] MEDS ORDERED: DEXTROSE 50% IN WATER 50 ML VIAL(D50) IV PUSH PRN (18:00)
[2018-03-13] MEDS ORDERED: SENNOSIDES 8.6 MG TAB PO PRN (18:00)
[2018-03-13] MEDS ORDERED: BISACODYL 10 MG SUPP RECTAL PRN (18:00)
[2018-03-13] MEDS ORDERED: SODIUM CHLORIDE 0.9% FLUSH 10 ML FLUSH IV FLUSH PRN (18:00)
[2018-03-13] MEDS ORDERED: NALOXONE HCL 0.4 MG/ML AMP IV PUSH PRN (18:00)
[2018-03-13] MEDS ORDERED: ACETAMINOPHEN 325 MG TAB PO PRN (18:00)
[2018-03-13] MEDS ORDERED: LACTULOSE SYRUP 20 GM/30 ML CUP PO PRN (18:00)
[2018-03-13] MEDS ORDERED: GLUCAGON 1 MG/ML VIAL OTHER PRN (18:00)
[2018-03-13] MEDS ORDERED: ONDANSETRON HCL 4 MG/2 ML VIAL IVP PRN (18:00)
[2018-03-13 19:09] VITALS: BP 145/68; PULSE 88; RESP 20; TEMP 98; O2SAT 98
[2018-03-13 19:20] VITALS: O2SAT 96
[2018-03-13] MEDS: SODIUM CHLORIDE 0.9% FLUSH 10 ML FLUSH IV FLUSH SCH (19:41)
[2018-03-13] MEDS: KETOROLAC TROMETHAMINE 30 MG/ML (IVP) VIAL IV PUSH PRN (19:41)
[2018-03-13 21:00] VITALS: BP 149/96; PULSE 68; RESP 17; TEMP 97.9; O2SAT 97
[2018-03-13] MEDS: DOCUSATE SODIUM 50 MG/SENNA 8.6 MG TAB PO SCH (21:00)
[2018-03-13] MEDS: INSULIN ASPART SUPPLEMENTAL SCALE SQ SCH (21:31)
[2018-03-14] VITALS (7 sets, daily range): BP systolic 136–173; BP diastolic 78–113; PULSE 60–88; RESP 16–18; TEMP 97.2–98.9; O2SAT 95–98
[2018-03-14] MEDS: KETOROLAC TROMETHAMINE 30 MG/ML (IVP) VIAL IV PUSH PRN ×4 (00:53→20:50)
[2018-03-14] MEDS ORDERED: hydrALAZINE HCL 20 MG/ML VIAL IV PUSH PRN (07:00)
[2018-03-14 07:37] LABS: AUTOMATED NEUTROPHIL # 3.7 TH/MM3 (1.8-7.7); BASOPHIL % 0.4 % (0.0-2.0); EOSINOPHIL # 0.2 TH/MM3 (0-0.4); EOSINOPHIL % 3.3 % (0.0-4.0); HEMATOCRIT 36.7 % (39.0-51.0); HEMOGLOBIN 12.8 GM/DL (13.0-17.0); LYMPH % 36.9 % (9.0-44.0); LYMPHOCYTE # 2.6 TH/MM3 (1.0-4.8); MEAN CELL VOLUME 92.1 FL (80.0-100.0); MEAN CORPUSCULAR HEMOGLOBIN 32.1 PG (27.0-34.0); MEAN CORPUSCULAR HGB CONC 34.8 % (32.0-36.0); MEAN PLATELET VOLUME 7.4 FL (7.0-11.0); MONO % 6.6 % (0.0-8.0); MONOCYTE # 0.5 TH/MM3 (0-0.9); NEUT % 52.8 % (16.0-70.0); PLATELET COUNT 261 TH/MM3 (150-450); RED BLOOD COUNT 3.99 MIL/MM3 (4.50-5.90); RED CELL DISTRIBUTION WIDTH 12.1 % (11.6-17.2)
[2018-03-14] MEDS: INSULIN ASPART SUPPLEMENTAL SCALE SQ SCH ×4 (08:00→20:50)
[2018-03-14 08:05] LABS: BICARBONATE 24.9 MEQ/L (21.0-32.0); CALCIUM 8.8 MG/DL (8.5-10.1); CREATININE 1.6 MG/DL (0.60-1.30)
[2018-03-14] MEDS ORDERED: HYDROmorphone HCL PF 0.5 MG/0.5 ML SYRINGE IV ONE (08:15)
[2018-03-14] MEDS ORDERED: POVIDONE IODINE 5% (ANTISEPSIS KIT) 4 APPLICATIONS EACH NARE PRN (10:45)
[2018-03-14] MEDS ORDERED: SODIUM CHLORID 0.9% 500 ML IV PRN (10:45)
[2018-03-14] MEDS ORDERED: LACTATED RINGER'S 1000 ML IV PRN (10:45)
[2018-03-14] MEDS ORDERED: METOPROLOL TARTRATE 25 MG TAB PO PRN (10:45)
[2018-03-14] MEDS ORDERED: CHLORHEXIDINE GLUCONATE 2 % 1 PACK (2 CLOTHS) TOPICAL PRN (10:45)
--- NOTE | 2018-03-14 11:11 | HHI.HP ---
[facility] Service Family Medicine Primary Care Physician Philippe Gross MD Admission Diagnosis Right renal stone with hydronephrosis Diagnoses: (1) Obstructive uropathy Diagnosis: Principal (2) FEDERICO (acute kidney injury) Diagnosis: Principal (3) Type 2 diabetes mellitus Diagnosis: Principal (4) FEN Diagnosis: Principal International Travel<30 Days: No Contact w/Intl Traveler<30days: No Known Affected Area: No History of Present Illness Mr Baez is a 52-year-old male with history of diabetes and nephrolithiasis presented with right flank pain. He states initially started about 2 months ago. Has been off and on since. He initially thought was a UTI. He said the pain wakes him up in the middle night. Is 10/10 at its worse. States the pain is mainly on his right side, radiates from his groin to his back. Describes the pain as stabbing. Also has incomplete emptying when urinating. Does have a history of BPH. He is not urinating more or less. Has not noticed any blood in his urine. Pain improves with heating pad. He has had kidney stones in the past. Last one was in September 2017. Has never had surgery for the kidney stones, he always passed them. Denies any nausea/ vomiting, chest pain, shortness of breath, fever/chills. This am he feels better after being medicated. He was getting ready to go for his urologic procedure. We discussed the etiology of stones and that most are calcium oxalate and his stones could be evaluated. We discussed hydration as that has definitely been shown to help reduce future stones. Explained that as he is outside "all the time" he should drink water even before he feels thirsty as it will be summer soon and so much fluid can be lost by sweat. We also discussed different procedures that might be done per urology. Review of Systems Other Constitutional: DENIES: Fever, Chills, Dizziness Eyes: DENIES: Vision loss Ears, nose, mouth, throat: DENIES: Hearing loss, Throat pain Respiratory: DENIES: Cough, Shortness of breath Cardiovascular: DENIES: Chest pain, Lower Extremity Edema Gastrointestinal: COMPLAINS OF: Abdominal pain, Diarrhea, DENIES: Black stools , Bloody stools, Constipation, Nausea, Vomiting Genitourinary: COMPLAINS OF: Urgency, Testicular Pain, DENIES: Hematuria, Dysuria, Penile Discharge Musculoskeletal: DENIES: Back pain, Neck pain Integumentary: DENIES: Abnormal pigmentation, Rash Hematologic/lymphatic: DENIES: Bruising, Lymphadenopathy Neurologic: DENIES: Abnormal gait, Headache, Localized weakness, Paresthesias Psychiatric: DENIES: Anxiety, Confusion, Mood changes Past Family Social History Past Medical History DM II HTN HLD BPH h/o nephrolithiasis Past Surgical History Bilateral knee surgery Back surgery Allergies: Coded Allergies: morphine (Unverified Allergy, Severe, CHEST PAIN, 11/01/17) Family History Mother passed in her 60s from pancreatic cancer. 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 SKIN: No rashes, ecchymoses or lesions. Cool and dry. HEAD: Atraumatic. Normocephalic. EYES: Pupils equal round and reactive. Extraocular motions intact. No scleral icterus. No injection or drainage. ENT: . Airway patent. NECK: Trachea midline. No JVD or lymphadenopathy. Supple, nontender. CARDIOVASCULAR: Regular rate and rhythm without murmurs, gallops, or rubs. RESPIRATORY: Clear to auscultation. Breath sounds equal bilaterally. No wheezes , rales, or rhonchi. BACK: Mild right CVA tenderness even on light palpation. No left CVA tenderness GASTROINTESTINAL: Abdomen soft, mild tenderness palpation in the right lower groin. MUSCULOSKELETAL: Extremities without clubbing, cyanosis, or edema. No joint tenderness, effusion, or edema noted. No calf tenderness. NEUROLOGICAL: Awake and alert. Cranial nerves II through XII intact. Motor and sensory grossly within normal limits. Normal speech. Laboratory Laboratory Tests Test 03/13/18 15:45 03/14/18 06:28 White Blood Count 6.6 7.0 Red Blood Count 4.06 3.99 Hemoglobin 13.0 12.8 Hematocrit 37.5 36.7 Mean Corpuscular Volume 92.3 92.1 Mean Corpuscular Hemoglobin 31.9 32.1 Mean Corpuscular Hemoglobin Concent 34.6 34.8 Red Cell Distribution Width 11.9 12.1 Platelet Count 270 261 Mean Platelet Volume 7.2 7.4 Neutrophils (%) (Auto) 45.2 52.8 Lymphocytes (%) (Auto) 44.9 36.9 Monocytes (%) (Auto) 5.9 6.6 Eosinophils (%) (Auto) 3.6 3.3 Basophils (%) (Auto) 0.4 0.4 Neutrophils # (Auto) 3.0 3.7 Lymphocytes # (Auto) 3.0 2.6 Monocytes # (Auto) 0.4 0.5 Eosinophils # (Auto) 0.2 0.2 Basophils # (Auto) 0.0 0.0 CBC Comment DIFF FINAL AUTO DIFF Differential Comment AUTO DIFF CONFIRMED Urine Color YELLOW Urine Turbidity CLEAR Urine pH 5.5 Urine Specific [place] 1.023 Urine Protein TRACE Urine Glucose (UA) 1000 Urine Ketones NEG Urine Occult Blood NEG Urine Nitrite NEG Urine Bilirubin NEG Urine Urobilinogen LESS THAN 2.0 Urine Leukocyte Esterase TRACE Urine RBC LESS THAN 1 Urine WBC 3 Urine Squamous Epithelial Cells <1 Microscopic Urinalysis Comment CULT NOT INDICATED Blood Urea Nitrogen 13 13 Creatinine 1.58 1.60 Random Glucose 219 188 Total Protein 7.1 Albumin 3.5 Calcium Level 8.9 8.8 Alkaline Phosphatase 83 Aspartate Amino Transf (AST/SGOT) 18 Alanine Aminotransferase (ALT/SGPT) 21 Total Bilirubin 0.6 Sodium Level 136 138 Potassium Level 3.9 4.0 Chloride Level 105 105 Carbon Dioxide Level 22.9 24.9 Anion Gap 8 8 Estimat Glomerular Filtration Rate 56 55 Result Diagram: 03/14/18 0628 03/14/18 0628 Imaging Last Impressions Abdomen/Pelvis CT 03/13/18 1522 Signed Impressions: Service Date/Time: March 16:48 - CONCLUSION: 1. Obstructive uropathy on the right side with severe hydronephrosis and hydroureter caused by 3 distal right ureteral stones. 2. Mild induration of the subcutaneous soft tissues of the abdominal wall of the left lower quadrant. Santana Khan MD [place] VTE Risk Assessment Caprini VTE Risk Assessment: No/Low Risk (score <= 1) Caprini Risk Assessment Model Point Value = 1 Point Value = 2 Point Value = 3 Point Value = 5 Age 41-60 Minor surgery BMI > 25 kg/m2 Swollen legs Varicose veins or History of unexplained or recurrent spontaneous Oral contraceptives or hormone replacement Sepsis (< 1 month) Serious lung disease, including pneumonia (< 1 month) Abnormal pulmonary function Acute myocardial infarction Congestive heart failure (< 1 month) History of inflammatory bowel disease Medical patient at bed rest Age 61-74 Arthroscopic surgery Major open surgery (> 45 min) Laparoscopic surgery (> 45 min) Malignancy Confined to bed (> 72 hours) Immobilizing plaster cast Central venous access Age >= 75 History of VTE Family history of VTE Factor V Leiden Prothrombin [id number] Lupus anticoagulant Anticardiolipin antibodies Elevated serum homocysteine Heparin-induced thrombocytopenia Other congenital or acquired thrombophilia Stroke (< 1 month) Elective arthroplasty Hip, pelvis, or leg fracture Acute spinal cord injury (< 1 month) Prophylaxis Regimen Total Risk Factor Score Risk Level Prophylaxis Regimen 0-1 Low Early ambulation 2 Moderate Order ONE of the following: *Sequential Compression Device (SCD) *Heparin 5000 units SQ BID 3-4 Higher Order ONE of the following medications: *Heparin 5000 units SQ TID *Enoxaparin/Lovenox 40 mg SQ daily (WT < 150 kg, CrCl > 30 mL/min) *Enoxaparin/Lovenox 30 mg SQ daily (WT < 150 kg, CrCl > 10-29 mL/min) *Enoxaparin/Lovenox 30 mg SQ BID (WT < 150 kg, CrCl > 30 mL/min) AND/OR *Sequential Compression Device (SCD) 5 or more Highest Order ONE of the following medications: *Heparin 5000 units SQ TID (Preferred with Epidurals) *Enoxaparin/Lovenox 40 mg SQ daily (WT < 150 kg, CrCl > 30 mL/min) *Enoxaparin/Lovenox 30 mg SQ daily (WT < 150 kg, CrCl > 10-29 mL/min) *Enoxaparin/Lovenox 30 mg SQ BID (WT < 150 kg, CrCl > 30 mL/min) AND *Sequential Compression Device (SCD) Assessment and Plan Assessment and Plan 52-year-old male with history of diabetes and nephrolithiasis presents with right flank pain. Found to have obstructing renal stone. Will admit for management and urology evaluation and treatment. Problem List: (1) Obstructive uropathy ICD Codes: N13.9 - Obstructive and reflux uropathy, unspecified Status: Acute Plan: Patient presents with right flank pain. History of nephrolithiasis. Abdomen/pelvis CT shows obstructive uropathy on the right side with severe hydronephrosis and hydroureter caused by 3 distal right ureteral stones. Vital signs stable. Afebrile. UA shows 1000 glucose, trace leukocyte esterase. -Urology consulted-ED spoke with urologist content management consultant, possible stent placement in the AM -NPO after midnight -Given Flomax in ED -Toradol for pain -Zofran PRN nausea -Monitor I/O (2) FEDER[place] (acute kidney injury) ICD Codes: N17.9 - Acute kidney failure, unspecified Status: Acute Plan: Creatinine of 1.58 on admission. Last creatinine was 11/07/17 was 1.23. Likely due to obstructing renal stone Given 1L bolus in ED -Monitor BMPs -Monitor fluid status -Avoid nephrotoxic agents (3) Type 2 diabetes mellitus ICD Codes: E11.9 - Type 2 diabetes mellitus without complications Status: Chronic Plan: On home insulin, metformin, glipizide. Hold home meds Low dose sliding scale (4) FEN Status: Acute Plan: Fluids: PO to avoid further hydronephrosis Electrolytes: monitor, replace PRN Nutrition: NPO after midnight DVT ppx: early ambulation Problem Qualifiers (1) Type 2 diabetes mellitus: Qualified Codes: E11.8 - Type 2 diabetes mellitus with unspecified complications; Z79.4 - FPC (current) use of insulin Kristine Cooper MD March 14, 2018 11:11
--- NOTE | 2018-03-14 11:16 | PD.CONS ---
HPI Service Urology Consult Requested By Farhan Plunkett Reason for Consult Obstructing right distal ureteral calculi Primary Care Physician Philippe Gross MD Diagnosis: History of Present Illness 52-year-old gentleman with history nephrolithiasis who presented to emergency room complaining of significant right flank pain. Patient has been having some discomfort involving the right flank for approximately 2 months prior to presentation. Symptoms similar to when he passed stone spontaneously in the past. His last episode was in September 2017. Workup in the emergency room included a CT scan stone protocol that demonstrated multiple right distal ureteral calculi causing moderate right hydronephrosis. The largest stone appeared to be approximately 8 mm in size. At the time of consultation the patient pain was adequately controlled. He did not appear to be in any acute distress. He was afebrile. Review of Systems Constitutional: DENIES: Fever, Chills Gastrointestinal: COMPLAINS OF: Abdominal pain (Right sided) Genitourinary: DENIES: Hematuria, Dysuria Musculoskeletal: COMPLAINS OF: Back pain (Right flank) Except as stated in HPI: all other systems reviewed are Neg Past Family Social History Past Medical History Recurrent nephrolithiasis Diabetes mellitus Hypertension Hyperlipidemia Past Surgical History Status post bilateral knee surgery Status post back surgery Reported Medications Refer to EMR Allergies: Coded Allergies: morphine (Unverified Allergy, Severe, CHEST PAIN, 11/01/17) Active Ordered Medications Refer to EMR Family History Mother with history of pancreatic cancer Father with history CHF Social History Former smoker of one pack per day 20 years Occasional alcohol use Denies intravenous drug abuse Physical Exam Vital Signs Date Time Temp Pulse Resp B/P (MAP) Pulse Ox O2 Delivery O2 Flow Rate FiO2 03/14/18 08:00 97.6 60 17 165/95 (118) 95 03/14/18 08:00 96 Room Air 03/14/18 04:00 98.1 67 17 173/100 (124) 96 03/14/18 01:53 16 03/14/18 00:00 97 Room Air 03/14/18 00:00 98.0 74 16 172/83 (112) 96 03/13/18 21:00 97.9 68 17 149/96 (113) 97 03/13/18 19:20 96 03/13/18 19:09 98.0 88 20 145/68 (93) 98 Room Air 03/13/18 19:07 20 03/13/18 14:50 98.3 91 16 158/91 (776) 00 Physical Exam GENERAL: This is a well-nourished, well-developed patient, in no apparent distress. SKIN: No rashes, ecchymoses or lesions. Cool and dry. HEAD: Atraumatic. Normocephalic. No temporal or scalp tenderness. EYES: Pupils equal round and reactive. Extraocular motions intact. No scleral icterus. No injection or drainage. ENT: Nose without bleeding, purulent drainage or septal hematoma. Throat without erythema, tonsillar hypertrophy or exudate. Uvula midline. Airway patent. NECK: Trachea midline. No JVD or lymphadenopathy. Supple, nontender, no meningeal signs. CARDIOVASCULAR: Regular rate and rhythm without murmurs, gallops, or rubs. RESPIRATORY: Clear to auscultation. Breath sounds equal bilaterally. No wheezes , rales, or rhonchi. GASTROINTESTINAL: Abdomen soft, non-tender, nondistended. No hepato-splenomegaly , or palpable masses. No guarding. GENITOURINARY: No CVA tenderness. Bladder not distended MUSCULOSKELETAL: Extremities without clubbing, cyanosis, or edema. No joint tenderness, effusion, or edema noted. No calf tenderness. Negative Homans sign bilaterally. NEUROLOGICAL: Awake and alert. Cranial nerves II through XII intact. Motor and sensory grossly within normal limits. Five out of 5 muscle strength in all muscle groups. Normal speech. Lab results reviewed: Yes Laboratory Tests Test 03/13/18 15:45 03/14/18 06:28 White Blood Count 6.6 7.0 Red Blood Count 4.06 3.99 Hemoglobin 13.0 12.8 Hematocrit 37.5 36.7 Mean Corpuscular Volume 92.3 92.1 Mean Corpuscular Hemoglobin 31.9 32.1 Mean Corpuscular Hemoglobin Concent 34.6 34.8 Red Cell Distribution Width 11.9 12.1 Platelet Count 270 261 Mean Platelet Volume 7.2 7.4 Neutrophils (%) (Auto) 45.2 52.8 Lymphocytes (%) (Auto) 44.9 36.9 Monocytes (%) (Auto) 5.9 6.6 Eosinophils (%) (Auto) 3.6 3.3 Basophils (%) (Auto) 0.4 0.4 Neutrophils # (Auto) 3.0 3.7 Lymphocytes # (Auto) 3.0 2.6 Monocytes # (Auto) 0.4 0.5 Eosinophils # (Auto) 0.2 0.2 Basophils # (Auto) 0.0 0.0 CBC Comment DIFF FINAL AUTO DIFF Differential Comment AUTO DIFF CONFIRMED Urine Color YELLOW Urine Turbidity CLEAR Urine pH 5.5 Urine Specific Jewett 1.023 Urine Protein TRACE Urine Glucose (UA) 1000 Urine Ketones NEG Urine Occult Blood NEG Urine Nitrite NEG Urine Bilirubin NEG Urine Urobilinogen LESS THAN 2.0 Urine Leukocyte Esterase TRACE Urine RBC LESS THAN 1 Urine WBC 3 Urine Squamous Epithelial Cells <1 Microscopic Urinalysis Comment CULT NOT INDICATED Blood Urea Nitrogen 13 13 Creatinine 1.58 1.60 Random Glucose 219 188 Total Protein 7.1 Albumin 3.5 Calcium Level 8.9 8.8 Alkaline Phosphatase 83 Aspartate Amino Transf (AST/SGOT) 18 Alanine Aminotransferase (ALT/SGPT) 21 Total Bilirubin 0.6 Sodium Level 136 138 Potassium Level 3.9 4.0 Chloride Level 105 105 Carbon Dioxide Level 22.9 24.9 Anion Gap 8 8 Estimat Glomerular Filtration Rate 56 55 Result Diagram: 03/14/18 0628 03/14/18 0628 Personally reviewed images: Yes Imaging Last Impressions Abdomen/Pelvis CT 03/13/18 1522 Signed Impressions: Service Date/Time: March 16:48 - CONCLUSION: 1. Obstructive uropathy on the right side with severe hydronephrosis and hydroureter caused by 3 distal right ureteral stones. 2. Mild induration of the subcutaneous soft tissues of the abdominal wall of the left lower quadrant. Santana Khan MD Assessment and Plan Assessment and Plan Urologic impression: Right hydronephrosis secondary to obstructing right distal ureteral calculi. Plan: 1. Keep patient n.p.o. 2. Bring the patient to the OR today for cystoscopy, right retrograde pyelogram and right ureteroscopy with laser lithotripsy. 3. Risks and benefits discussed Houston Pal MD March 14, 2018 11:16
[2018-03-14] MEDS ORDERED: MIDAZOLAM HCL 2 MG/2 ML VIAL ONE (11:56)
[2018-03-14] MEDS ORDERED: ONDANSETRON HCL 4 MG/2 ML VIAL IV ONE (12:00)
[2018-03-14] MEDS ORDERED: PHENYLEPH/NS 1000 MCG/10 ML SYR IV ONE (12:00)
[2018-03-14] MEDS ORDERED: LIDOCAINE HCL 1% PF 5 ML SYRINGE OTHER ONE (12:00)
[2018-03-14] MEDS ORDERED: PROPOFOL 200 MG/20 ML AMP IV ONE (12:00)
[2018-03-14] MEDS ORDERED: ceFAZolin INJ 1,000 MG VIAL IV ONE ×2 (12:00→12:29)
[2018-03-14] MEDS ORDERED: SODIUM CHLOR 0.9% 1000 ML INJ 1,000 ML IV ONE (12:00)
[2018-03-14] MEDS ORDERED: IOHEXOL 350 MG/ML 50 ML BTL (for RAD DIAG) OTHER ONE (12:28)
--- NOTE | 2018-03-14 13:59 | PD.OP ---
Operative Report Date of Surgery: March 14, 2018 Preoperative Diagnosis: (1) Ureteral calculus, right Postoperative Diagnosis: (1) Ureteral calculus, right Procedure: Cystoscopy, right retrograde pyelogram, right ureteroscopy with laser lithotripsy and insertion of right ureteral catheter Anesthesia: General Surgeon: Houston Pal Reel Film Inspector(s): None Operation and Findings: Indication for procedures: Case of a pleasant 52-year-old gentleman with multiple obstructing right distal ureteral calculi who presents now for right ureteroscopy with laser lithotripsy. Operative procedure in detail: Patient was brought to the operating room suite placed supine on the OR table. He was then placed under general anesthesia. He was then repositioned in the dorsal lithotomy position and prepped and draped in normal sterile fashion. After an appropriate timeout was undertaken I proceeded with cystoscopic evaluation utilizing the rigid cystoscope with the 30 lens and the 20 Setswana sheath. The urethra was patent without stricture formation. The prostatic urethra was not obstructing. Further passage of the cystoscope within the urinary bladder revealed both right and left ureteral orifices to be in correct anatomic position. There was clear drainage noted on the left and no drainage from the right side. A sensor 0.035 wire was then advanced up the right ureter under fluoroscopic guidance and was able to be negotiated around the obstructing distal stones and further advanced up into the right renal pelvis. The cystoscope was then withdrawn and the guidewire secured to a sterile drape with a hemostat. The self dilating ureteroscope was next introduced next to the wire up to the point of the obstructing stones. The patient then underwent laser lithotripsy utilizing the holmium laser and the 200 m fiber. The stones are broken down to small fragments and the larger fragments were subsequently retrieved with a 2.4 Setswana stone basket under direct vision. The ureteroscope was then withdrawn and the cystoscope reintroduced with the guidewire backloaded. A 6 Setswana open-ended ureteral catheter was then advanced over the wire up to the right renal pelvis and the wire was withdrawn. A right retrograde Polygram study was performed to outline the collecting system and subsequently left in place with the end of the catheter in the right renal pelvis. The bladder was drained of all irrigant fluid and a 16 Setswana 10 cc Velázquez catheter was placed. The right open-ended ureteral catheter was then anchored to the Velázquez via a connector and both catheters placed to gravity drainage. The patient tolerated the procedures without complications and was transferred to the PACU in satisfactory condition. Houston Pal MD March 14, 2018 13:59
[2018-03-14] MEDS ORDERED: PERC5TAB12 PO (14:02)
[2018-03-14] MEDS ORDERED: LEVA500T33 PO (14:02)
[2018-03-14] MEDS ORDERED: DO NOT ADM ANY ANTICOAGULANT DRUGS PRN (14:04)
[2018-03-14] MEDS ORDERED: *HYDROmorphone PF 0.5 MG/0.5 ML PERIprocedure ONLY ONE (14:10)
[2018-03-14] MEDS: SODIUM CHLORIDE 0.9% FLUSH 10 ML FLUSH IV FLUSH SCH ×2 (20:41→21:00)
[2018-03-14] MEDS: DOCUSATE SODIUM 50 MG/SENNA 8.6 MG TAB PO SCH (20:46)
[2018-03-14] MEDS: SODIUM CHLOR 0.9% 1000 ML INJ 1,000 ML IV SCH (20:50)
--- NOTE | 2018-03-14 22:33 | EKG ---
Date Performed: 03/14/2018 Time Performed: 09:42:16 PTAGE: 52 years EKG: Sinus bradycardia with sinus arrhythmia Inferior T wave changes are nonspecific Since previ ous tracing, no significant change noted Borderline ECG PREVIOUS TRACING : 06/09/2011 02.47.08 DOCTOR: Mendel Gomez Interpretating Date/Time 03/14/2018 17:25:08
[2018-03-15] MEDS: KETOROLAC TROMETHAMINE 30 MG/ML (IVP) VIAL IV PUSH PRN ×3 (00:23→09:18)
[2018-03-15 04:47] VITALS: BP 128/81; PULSE 76; RESP 16; TEMP 98.9; O2SAT 98
[2018-03-15] MEDS: SODIUM CHLOR 0.9% 1000 ML INJ 1,000 ML IV SCH (05:24)
--- NOTE | 2018-03-15 07:04 | HHI.FPPN ---
Subjective Remarks Patient seen and examined this morning. Afebrile vital signs stable. Patient is status post right retrograde pyelogram, insertion of right ureteral catheter and laser lithotripsy of renal stone. He is still draining blood-tinged urine. He reports having some pain in the muscles where the ureter was placed. Denies any fevers, chest pain or shortness of breath. He is hopeful to go home soon. (Mendel Weiss MD R3) Objective Vitals Vital Signs Date Time Temp Pulse Resp B/P (MAP) Pulse Ox O2 Delivery O2 Flow Rate FiO2 03/15/18 06:24 16 03/15/18 04:47 98.9 76 16 128/81 (97) 98 03/15/18 01:23 16 03/14/18 23:55 98.9 86 17 136/82 (100) 95 03/14/18 20:42 98.1 88 17 146/78 (100) 96 03/14/18 20:15 97 Room Air 03/14/18 17:51 98 21 03/14/18 16:00 97.2 62 18 160/113 (129) 98 03/14/18 14:45 56 16 150/75 (100) 96 Room Air 03/14/18 14:30 72 16 146/81 (102) 96 Room Air 03/14/18 14:15 76 16 138/88 (105) 97 Room Air 03/14/18 14:04 97.4 80 16 149/82 (104) 100 03/14/18 08:00 97.6 60 17 165/95 (118) 95 03/14/18 08:00 96 Room Air I/O 03/14/18 03/14/18 03/14/18 03/15/18 03/15/18 03/15/18 07:00 15:00 23:00 07:00 15:00 23:00 Intake Total 450 ml 1000 ml 60 ml Output Total 500 ml 105 ml 2700 ml Balance -50 ml 895 ml -2640 ml Intake Oral 450 ml 60 ml IV Total 100 ml Other 900 ml Output Urine Total 500 ml 100 ml 2700 ml Estimated Blood Loss 5 ml # Bowel Movements 0 (Mendel Weiss MD R3) Result Diagram: 03/14/18 0628 03/14/18 0628 Imaging Last Impressions Abdomen/Pelvis CT 03/13/18 1522 Signed Impressions: Service Date/Time: March 16:48 - CONCLUSION: 1. Obstructive uropathy on the right side with severe hydronephrosis and hydroureter caused by 3 distal right ureteral stones. 2. Mild induration of the subcutaneous soft tissues of the abdominal wall of the left lower quadrant. Santana Khan MD Objective Remarks GEN: Well-developed, well-nourished patient. No acute distress. CV: Regular rate and rhythm without obvious murmurs LUNGS: Clear to auscultation bilaterally. Normal respiratory effort. No wheezes , rales, rhonchi. GI: Soft, nontender, nondistended. No palpable masses. Bowel sounds WNL. : Right ureteral catheter in place EXT: No edema. NEURO/PSYCH: Afocal. Awake, alert, and oriented x3. Appropriate insight and judgment. Procedures 03/28: Cystoscopy, right retrograde pyelogram, right ureteroscopy with laser lithotripsy and insertion of right ureteral catheter Medications and IVs Current Medications Medications (Trade) Dose Ordered Sig/Mylene Route Start Time Stop Time Status Last Admin (NS Flush) 2 ml UNSCH PRN IV FLUSH 03/13/18 18:00 (NS Flush) 2 ml BID IV FLUSH 03/13/18 21:00 03/14/18 20:41 (Tylenol) 650 mg Q4H PRN PO 03/13/18 18:00 (Zofran Inj) 4 mg Q6H PRN IVP 03/13/18 18:00 (Motrin) 400 mg Q6H PRN PO 03/13/18 18:00 (Toradol Inj) 15 mg Q6H PRN IV PUSH 03/13/18 18:00 03/18/18 17:59 03/15/18 05:22 (Toradol Inj) 30 mg Q6H PRN IV PUSH 03/13/18 18:00 03/18/18 17:59 03/15/18 00:23 (Narcan Inj) 0.4 mg UNSCH PRN IV PUSH 03/13/18 18:00 (Juanita-Colace) 1 tab BID PO 03/13/18 21:00 (Milk Of Magnesia Liq) 30 ml Q12H PRN PO 03/13/18 18:00 (Senokot) 17.2 mg Q12H PRN PO 03/13/18 18:00 (Dulcolax Supp) 10 mg DAILY PRN RECTAL 03/13/18 18:00 (Lactulose Liq) 30 ml DAILY PRN PO 03/13/18 18:00 (D50w (Vial) Inj) 50 ml UNSCH PRN IV PUSH 03/13/18 18:00 (Glucagon Inj) 1 mg UNSCH PRN OTHER 03/13/18 18:00 (NovoLOG SUPPLEMENTAL SCALE) 1 ACHS SLIDING SCALE SQ 03/13/18 21:00 03/14/18 20:50 (Apresoline Inj) 10 mg Q6H PRN IV PUSH 03/14/18 07:00 Sodium Chloride 1,000 ml @ 150 mls/hr Q6H40M IV 03/14/18 10:46 03/15/18 05:24 Lactated Ringer's 1,000 ml @ 30 mls/hr Q24H PRN IV 03/14/18 10:45 03/17/18 10:44 Sodium Chloride 500 ml @ 30 mls/hr [id number] PRN IV 03/14/18 10:45 03/17/18 10:44 (Lopressor) 25 mg WINDOW MAKER PRN PO 03/14/18 10:45 03/17/18 10:44 (Betadine 5% Antisepsis Kit) 1 applic WINDOW MAKER PRN EACH NARE 03/14/18 10:45 03/17/18 10:44 (Chlorhexidine 2% Cloth) 3 pack WINDOW MAKER PRN TOPICAL 03/14/18 10:45 03/17/18 10:44 ([facility] [place] [facility]) ALL NURSING DEPARTME... UNSCH PRN .XX 03/14/18 14:04 03/15/18 14:03 (Mendel Weiss MD R3) A/P Assessment and Plan 52-year-old male with history of diabetes and nephrolithiasis presents with right flank pain. Found to have obstructing renal stone. Status post cystoscopy, right retrograde pyelogram, right ureteroscopy with laser lithotripsy and insertion of right ureteral catheter. Discharge Planning Discharge pending clearance by urology (Mendel Weiss MD R3) Attending Attestation Patient seen and examined. Case reviewed and discussed with the resident team. Agree with plan of care as discussed with me and documented in the resident note. "I hate this catheter and want it out now so I can go home." On reading Dr Pal's note, he is clear from a urology point of view. His catheter is draining reddish blood but no clots. will d/c casas, be sure he urinates and then should be able to go home. no pain! (Kristine Cooper MD) Problem List: (1) Obstructive uropathy ICD Codes: N13.9 - Obstructive and reflux uropathy, unspecified Status: Acute Plan: Patient presents with right flank pain. History of nephrolithiasis. Abdomen/pelvis CT shows obstructive uropathy on the right side with severe hydronephrosis and hydroureter caused by 3 distal right ureteral stones. Vital signs stable. Afebrile. -Urology consulted, recommendations appreciated -Status post cystoscopy, right retrograde pyelogram, right ureteroscopy with laser lithotripsy and insertion of right ureteral catheter. -Toradol for pain -Zofran PRN nausea -Monitor I/O (2) FEDERICO (acute kidney injury) ICD Codes: N17.9 - Acute kidney failure, unspecified Status: Acute Plan: Creatinine of 1.58 on admission. Last creatinine was 11/07/17 was 1.23. Likely due to obstructing renal stone -Continue IV fluids -Monitor BMPs -Monitor fluid status -Avoid nephrotoxic agents (3) Type 2 diabetes mellitus ICD Codes: E11.9 - Type 2 diabetes mellitus without complications Status: Chronic Plan: On home insulin, metformin, glipizide. Hold home meds Low dose sliding scale (4) FEN Status: Acute Plan: Fluids: PO to avoid further hydronephrosis Electrolytes: monitor, replace PRN Nutrition: Regular diet as tolerated DVT ppx: early ambulation, SCDs, no pharmacological prophylaxis at this time currently status post procedure (Mendel Weiss MD R3) Problem Qualifiers (1) Type 2 diabetes mellitus: Qualified Codes: E11.8 - Type 2 diabetes mellitus with unspecified complications; Z79.4 - terminal worker (current) use of insulin Mendel Weiss MD R3 March 15, 2018 07:04 Kristine Cooper MD March 15, 2018 12:23
[2018-03-15 08:00] VITALS: BP 147/79; PULSE 77; RESP 16; TEMP 97.9; O2SAT 97
[2018-03-15 08:05] VITALS: O2SAT 95
[2018-03-15] MEDS: DOCUSATE SODIUM 50 MG/SENNA 8.6 MG TAB PO SCH (09:00)
[2018-03-15] MEDS: SODIUM CHLORIDE 0.9% FLUSH 10 ML FLUSH IV FLUSH SCH (09:00)
[2018-03-15] MEDS: INSULIN ASPART SUPPLEMENTAL SCALE SQ SCH (09:29)
--- NOTE | 2018-03-15 10:09 | HHI.DCPOC ---
Discharge Care Plan Diagnosis: (1) Ureteral calculus, right Goals to Promote Your Health * To prevent worsening of your condition and complications * To maintain your health at the optimal level drink water Directions to Meet Your Goals Take your medications as prescribed Follow your dietary instruction Follow activity as directed Keep your appointments as scheduled Take your immunizations and boosters as scheduled If your symptoms worsen call your PCP, if no PCP go to Urgent Care Center or Emergency Room Smoking is Dangerous to Your Health. Avoid second hand smoke Call the 24-hour hour crisis hotline for domestic abuse at Kristine Cooper MD March 15, 2018 10:09
== END 2018-03-15 11:26 | disposition home or self-care (01) | DRG 669 ==
LOC: NEPD 14:44 → NEDA 17:33 → N04A 19:50
PROVIDERS: ADMIT Family Medicine; ATTEND Family Medicine
PROC: 0TC68ZZ Extirpation of Matter from Right Ureter, Via Natural or Artificial Opening Endoscopic (ICD-10-PCS; 2018-03-14)
PROC: 0T9B80Z Drainage of Bladder with Drainage Device, Via Natural or Artificial Opening Endoscopic (ICD-10-PCS; 2018-03-14)
PROC: BT1DZZZ Fluoroscopy of Right Kidney, Ureter and Bladder (ICD-10-PCS; principal; 2018-03-14 11:53)
DX: N13.2 Hydronephrosis with renal and ureteral calculous obstruction (principal); N17.9 Acute kidney failure, unspecified; N13.9 Obstructive and reflux uropathy, unspecified; E11.9 Type 2 diabetes mellitus without complications; Z87.891 Personal history of nicotine dependence; Z88.8 Allergy status to other drugs, medicaments and biological substances
CPT/HCPCS: 74176; 74420; 80048; 80053; 81001; 82365; 82370; 82948; 85025; 88300; 93005; 96361; 96374; C1769; J0690; J1170; J1815; J1885; J2250; J2370; J2405; J3010; J7030; Q9967